=== PATIENT | female | born 1990 | race Caucasian/White ===

== ENCOUNTER 2024-06-22 15:46 | Emergency (ER) | payer OTHER ==
[~2024-06-22] VITALS: Ht 177.8 cm; Wt 86.2 kg
[2024-06-22] MEDS ORDERED: UBRELVY100 MG PO (17:24)
[2024-06-22] MEDS ORDERED: SODIUM CHLORIDE 0.9% 1,000 ML IV ONE (17:35)
[2024-06-22] MEDS ORDERED: ACETAMINOPHEN 325 MG TAB PO ONE (17:35)
[2024-06-22] MEDS ORDERED: Ketorolac Tromethamine 30 MG/ML VIAL IV ONE (17:35)
[2024-06-22] MEDS ORDERED: diphenhydrAMINE hydrochloride 50 MG/ML VIAL IV ONE (17:35)
[2024-06-22] MEDS ORDERED: Dexamethasone Sodium Phospha 20 MG/5 ML VIAL IV ONE (17:35)
[2024-06-22] MEDS ORDERED: Metoclopramide Hydrochloride 10 MG/2 ML AMP IV ONE (17:35)
[2024-06-22] MEDS ORDERED: SUMATRIPTAN SUCCINATE 6 MG/0.5 ML VIAL IM ONE (18:55)
[2024-06-22] MEDS ORDERED: SUMATRIPTAN SUCCINATE 6 MG/0.5 ML VIAL SC ONE (19:00)
[2024-06-22] MEDS ORDERED: REGLAN10 M1 PO (19:54)
== END 2024-06-22 20:54 | disposition home or self-care (01) ==
LOC: ED 15:46
DX: G43.909 Migraine, unspecified, not intractable, without status migrainosus (principal); Z88.5 Allergy status to narcotic agent